=== PATIENT | female | born 2000 | race American Indian/Alaskan Native ===

== ENCOUNTER 2021-10-13 19:48 | Emergency (ER) | payer OTHER ==
--- NOTE | 2021-10-13 20:29 | Emergency Department Report ---
History of Present Illness - General Chief Complaint: Overdose Stated Complaint: POSS OD Time Seen by Provider: 10/13/21 20:11 Source: patient, EMS Mode of arrival: Stretcher Limitations: No Limitations - History of Present Illness Initial Comments: Patient is 20 years old female with unknown past psychiatric history. Patient brought to the emergency room via EMS from home for evaluation of possible drug overdose. EMS reported that patient roommate called 911 stating that she overdosed on Tylenol and amoxicillin. Patient admitted that she took 16 tablets of the 325 mg of Tylenol and 2 tabs of amoxicillin 500mg. Patient stated that she is having trouble with her family and friends. She denied any previous suicidal ideation or attempt. She also denied any auditory or visual hallucination. MD Complaint: intentional overdose -: hour(s) (1) Intent: unwilling to say How Overdose Was Discovered: called 911 Context: Intentional Overdose: relationship problems Treatments Prior to Arrival: none - Related Data Allergies Allergy/AdvReac Type Severity Reaction Status Date / Time No Known Allergies Allergy Verified 10/14/21 11:48 ED Review of Systems ROS: Stated complaint: POSS OD Other details as noted in HPI Comment: All other systems reviewed and negative Constitutional: denies: chills, fever Respiratory: denies: cough, shortness of breath, SOB with exertion Cardiovascular: denies: chest pain Gastrointestinal: denies: abdominal pain, nausea, vomiting Musculoskeletal: denies: back pain Neurological: denies: headache, weakness, numbness, paresthesias, confusion Psychiatric: depression, suicidal thoughts ED Physical Exam - General Limitations: No Limitations General appearance: alert, in no apparent distress, other (looks depressed) - Head Head exam: Present: atraumatic, normocephalic, normal inspection - Eye Eye exam: Present: normal appearance - ENT ENT exam: Present: normal exam, normal orophraynx, mucous membranes moist - Neck Neck exam: Present: normal inspection, full ROM. Absent: tenderness, meningismus - Respiratory Respiratory exam: Present: normal lung sounds bilaterally - Cardiovascular Cardiovascular Exam: Present: regular rate, normal rhythm, normal heart sounds - GI/Abdominal GI/Abdominal exam: Present: soft, normal bowel sounds. Absent: distended, tenderness, guarding, rebound, rigid, organomegaly, mass, bruit, pulsatile mass, hernia - Extremities Exam Extremities exam: Present: normal inspection, full ROM, normal capillary refill. Absent: tenderness, pedal edema, joint swelling, calf tenderness - Back Exam Back exam: Present: normal inspection, full ROM. Absent: CVA tenderness (R), CVA tenderness (L) - Neurological Exam Neurological exam: Present: alert, oriented X3, CN II-XII intact, normal gait, reflexes normal. Absent: motor sensory deficit - Psychiatric Psychiatric exam: Present: depressed, suicidal ideation. Absent: homicidal ideation - Skin Skin exam: Present: warm, intact, normal color ED Course Vital Signs 10/13/21 10/13/21 10/13/21 20:19 20:46 21:01 Temperature 98.3 F Pulse Rate 97 H 81 Respiratory 16 17 28 H Rate Blood Pressure Blood Pressure 141/95 [Left] O2 Sat by Pulse 100 Oximetry 10/13/21 10/13/21 10/13/21 21:15 21:31 21:45 Temperature Pulse Rate 94 H 93 H 93 H Respiratory 25 H 20 18 Rate Blood Pressure 117/77 117/77 Blood Pressure [Left] O2 Sat by Pulse 98 98 Oximetry 10/13/21 10/13/21 10/13/21 21:48 22:01 23:01 Temperature Pulse Rate 91 H 90 Respiratory 15 16 Rate Blood Pressure 117/77 117/77 Blood Pressure [Left] O2 Sat by Pulse 98 99 100 Oximetry 10/14/21 10/14/21 00:01 09:09 Temperature 98.2 F Pulse Rate 85 76 Respiratory 19 14 Rate Blood Pressure 113/72 Blood Pressure 118/72 [Left] O2 Sat by Pulse 100 99 Oximetry ED Medical Decision Making - Lab Data Result diagrams: 10/13/21 20:23 10/13/21 20:23 - Medical Decision Making Patient is 20 years old female with unknown past psychiatric history. Patient brought to the emergency room via EMS from home for evaluation of possible drug overdose. EMS reported that patient roommate called 911 stating that she overdosed on Tylenol and amoxicillin. Patient admitted that she took 16 tablets of the 325 mg of Tylenol and 2 tabs of amoxicillin 500mg. Patient stated that she is having trouble with her family and friends. She denied any previous suicidal ideation or attempt. She also denied any auditory or visual hallucination. Time of ingestion according to the patient approximately 3 hours prior to coming to the emergency room. Poison control contacted and advised to monitor patient for 6 hours from the time of ingestion. They also recommended acetaminophen level 4 hours after the ingestion and if it is less than 150 patient will be medically clear. Labs reviewed and is unremarkable. Repeated 4-hour acetaminophen level is 15. Patient is medically cleared to be evaluated by psychiatric team. Critical care attestation.: If time is entered above; I have spent that time in minutes in the direct care of this critically ill patient, excluding procedure time. ED Disposition Clinical Impression: Intentional drug overdose Disposition: [address] [place] [address] Is pt being admited?: No Condition: Stable Instructions: Intentional Drug Overdose Referrals: PRIMARY CARE, [Primary Care Provider] - 3-5 Days
[2021-10-13 20:39] LABS: Basophils % (Auto) 0.4 % (0.0-1.8); Eosinophils % (Auto) 0.3 % (0.0-4.3); Hematocrit 38.5 % (30.3-42.9); Hemoglobin 12.1 gm/dl (10.1-14.3); Lymphocytes # (Auto) 1.7 K/mm3 (1.2-5.4); Lymphocytes % (Auto) 23.7 % (13.4-35.0); Mean Corpuscular HGB Conc 32 % (30-34); Mean Corpuscular Volume 83 fl (79-97); Monocytes # (Auto) 0.8 K/mm3 (0.0-0.8); Monocytes % (Auto) 10.7 % (0.0-7.3); Platelet Count 237 K/mm3 (140-440); Red Blood Count 4.62 M/mm3 (3.65-5.03); Red Cell Distribution Width 14.1 % (13.2-15.2)
[2021-10-13 20:58] LABS: Blood Urea Nitrogen 10 mg/dL (7-17); Calcium 9.4 mg/dL (8.4-10.2); Hemolysis Index 93
[2021-10-13 20:59] LABS: BUN/Creatinine Ratio 17
[2021-10-13 21:40] LABS: Alanine Aminotransferase 9 units/L (7-56); Albumin 4.3 g/dL (3.9-5)
[2021-10-13 21:43] LABS: Bilirubin,Direct < 0.2 mg/dL (0-0.2)
[2021-10-13 21:59] LABS: Bilirubin,Urine NEG (Negative); Blood,Urine NEG (Negative); Color,Urine Yellow (Yellow); Mucus,Urine 3+ /HPF; Protein,Urine <15 mg/dL mg/dL (Negative)
[2021-10-13 22:05] LABS: Amphetamine Screen,Urine Negative; Benzodiazepines Screen,Urine Negative; Cocaine Screen,Urine Negative; Methadone Screen,Urine Negative; Opiate Screen,Urine Negative
[2021-10-13 22:25] LABS: Cannabinoid Screen,Urine Positive
[2021-10-14 09:10] VITALS: BP 118/72
--- NOTE | 2021-10-14 12:41 | Consultation ---
History of Present Illness - Reason for Consult Consult date: 10/14/21 Reason for consult: Suicidal attempt - History of Present Psychiatric Illness ED Note:Patient is 20 years old female with unknown past psychiatric history. Patient brought to the emergency room via EMS from home for evaluation of possible drug overdose. EMS reported that patient roommate called 911 stating that she overdosed on Tylenol and amoxicillin. Patient admitted that she took 16 tablets of the 325 mg of Tylenol and 2 tabs of amoxicillin 500mg. Patient stated that she is having trouble with her family and friends. She denied any previous suicidal ideation or attempt. She also denied any auditory or visual hallucination. The patient is a 20 year old female with no psychiatric history who presents to the ED with suicidal attempt via ingesting pills. The patient was seen this morning. She states that she got in an argument with her boyfriend yesterday " I was acting out my emotions." The patient states that she took about 16 tablets of Tylenol;she states that she thought about her actions and vomited the pills. The patient is remorseful. She denies any current suicidal/homicidal ideation and denies hallucinations. PAST PSYCHIATRIC HISTORY: Diagnoses:Denies Suicide attempts or Self-harm behavior: Denies Prior psychiatric hospitalizations: Denies Substance Abuse history: Denies Previous psychiatric medications tried: Denies Outpatient treatment: Denies PAST MEDICAL HISTORY: None reported or document Family Psychiatric History: None reported or documented SOCIAL HISTORY Marital Status: Single Living Arrangements: Lives alone Employment Status: Unknown Access to guns/weapons: Denies [id number] grade History of Abuse: Denies Legal History: Denies REVIEW OF SYSTEMS Constitutional: Negative for weight loss ENT: Negative for stridor Respiratory: Negative for cough or hemoptysis All other systems reviewed and are negative MENTAL STATUS EXAMINATION General Appearance and Behavior: Age appropriate, good hygiene, wearing appropriate clothes. distracted, cooperative Cooperation: Psychomotor Behavior: Psychomotor normal Mood: Calm Affect and affective range: congruent with stated mood Thought Process:Goal directed Thought Content: Reality oriented Speech: Normal volume, Regular rate and rhythm Suicidal Ideation: Denies Homicidal Ideation: Denies Hallucinations: Denies Delusions: none elicited Impulse Control: impaired Insight and Judgment: Limited Memory: limited Attention: Distracted Orientation: alert and oriented Assessment and Plan (1) Major depressive disorder Treatment Plan 1013 Prozac 10mg po daily Continue home meds Sitter: refer to medical Medical: per primary Disposition:Recommend acute psychiatric inpatient treatment. Will follow. Thanks Case staffed with Dr. Vasquez Medications and Allergies Medications and Allergies Allergies Allergy/AdvReac Type Severity Reaction Status Date / Time No Known Allergies Allergy Verified 10/14/21 11:48 Mental Status Exam - Vital signs Last Vital Signs Temp 98.2 F 10/14/21 09:09 Pulse 76 10/14/21 09:09 Resp 14 10/14/21 09:09 BP 118/72 10/14/21 09:09 Pulse Ox 99 10/14/21 09:09 Results Result Diagrams: 10/13/21 20:23 10/13/21 20:23 Abnormal lab results 10/13/21 10/13/21 10/13/21 Range/Units 20:23 20:23 20:23 MCH 26 L (28-32) pg Hyde % (Auto) 10.7 H (0.0-7.3) % Sodium 134 L (137-145) mmol/L Chloride 97.7 L (98-107) mmol/L Salicylates < 0.3 L (2.8-20.0) mg/dL All other labs normal.
--- NOTE | 2021-10-14 13:55 | Emergency Department Report ---
Blank Doc - Documentation Documentation: 20-year-old female 1013 for suicidal ideation/attempt. Prozac initiated by [facility] nurse practitioner. Patient awaiting placement
[2021-10-14] MEDS ORDERED: FLUoxetine 10 MG TAB PO SCH (14:00)
== END 2021-10-14 14:42 ==
LOC: ED 19:48 → EEVIPCON 19:48 → ED 10-14 14:42
DX: T39.1X2A Poisoning by 4-Aminophenol derivatives, intentional self-harm, initial encounter (principal); Y92.89 Other specified places as the place of occurrence of the external cause; Z20.822 Contact with and (suspected) exposure to COVID-19
CPT/HCPCS: 36415; 80048; 80076; 80307; 81001; 84703; 85025; 99285; U0003; 80320; G0480